=== PATIENT | female | born 2000 | race Caucasian/White ===

== ENCOUNTER 2024-07-07 15:37 | Emergency (ER) | payer MEDICAID ==
[~2024-07-07] VITALS: Ht 170.2 cm; Wt 68.6 kg
[~2024-07-07 15:37] MED LIST: ONDA4TAB6 PO
[2024-07-07 15:42] VITALS: BP 115/80; TEMP 97.9
[2024-07-07] MEDS: ipratropium/albuterol 3ml nebule NEB ONE (17:36)
[2024-07-07 17:40] VITALS: PULSE 102; RESP 20
[2024-07-07 17:49] VITALS: PULSE 108; RESP 20; O2SAT 99
[2024-07-07] MEDS ORDERED: ALBU8HFA PO (18:08)
[2024-07-07] MEDS ORDERED: PRED20TA PO (18:08)
[2024-07-07] MEDS: predniSONE 20 mg tablet PO ONE (18:30)
[2024-07-07 18:31] VITALS: PULSE 98; RESP 18; O2SAT 97
== END 2024-07-07 18:32 | disposition home or self-care (01) ==
LOC: ER 15:38
DX: J40 Bronchitis, not specified as acute or chronic (principal); F12.90 Cannabis use, unspecified, uncomplicated; Z88.1 Allergy status to other antibiotic agents; Z79.52 Long term (current) use of systemic steroids; Z79.899 Other long term (current) drug therapy
CPT/HCPCS: 71046; 94640; 94760; 99283